=== PATIENT | female | born 1940 | race Caucasian/White ===

== ENCOUNTER 2020-08-23 09:56 | Inpatient (IN) | payer MEDICARE, MEDICAID, SELFPAY ==
--- NOTE | 2020-08-23 10:08 | XRR_ITS ---
PROCEDURE INFORMATION: Exam: XR Chest, 1 View Exam date and time: 08/23/2020 10:40 AM Age: 80 years old Clinical indication: Dyspnea; Additional info: Covid TECHNIQUE: Imaging protocol: XR of the chest Views: 1 view. COMPARISON: CT Chest/Abdomen/Pelvis w IV* 03/28/2015 7:33 PM FINDINGS: Lungs: Ilnt-to-nttnudec pulmonary opacities in the mid and right lower lung field consistent with pneumonia. Pleural space: Unremarkable. No pleural effusion. No pneumothorax. Heart/Mediastinum: Unremarkable. No cardiomegaly. Vasculature: Calcification of the thoracic aorta and/or great vessels consistent with atherosclerotic vessel disease. 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 XR/XR chest 1V portable [id number] IMPRESSION: [id number] pulmonary opacities in the mid and right lower lung field consistent with pneumonia.
--- NOTE | 2020-08-23 10:09 | ECG_ITS ---
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
--- NOTE | 2020-08-23 10:13 | W.ED.COVID ---
HPI - COVID General: Chief Complaint: COVID symptoms Stated Complaint: COVID +/ Fever Time Seen by Provider: 08/23/20 09:58 History of Present Illness: HPI Narrative: This patient is an 80-year-old female presenting today with Covid. She is concerned that she has been sick for a total of 2 weeks and is still willing pretty bad. Her symptoms have been cough, fever, body aches, back pain, shortness of breath. These symptoms all started 2 weeks ago and have been basically unchanged. She was seen in the ER at [place] 6 days ago and had a chest x-ray at that time which showed some Covid changes. She was put on Decadron for 5 days. Her positive Covid test was done on Tuesday the week before that at [facility]. Her is also positive but has not been very symptomatic. She is pretty healthy overall and only takes a fluid pill. She denies diabetes, hypertension. She does have obesity as a risk factor as well as her age. Her PCP is Kaleb Rodríguez MD complaint: known COVID positive Prior covid testing: yes, results known ([facility]) Prior testing date: 08/12/20 COVID 19 common symptoms: positive fever(s) (103), chills, cough, non-productive cough, dyspnea, fatigue, body aches, headache(s) and nausea COVID 19 other sytmptoms: positive chest pressure; negative chest pain Onset (ago): day(s) (14) Severity: moderate and slowly worsening Pertinent comorbid conditions: obesity and recent ED visit for same complaint (At [place] on 1025) COVID Results: SARS-CoV-2 Antigen (Rapid) Negative (Negative) 08/23/20 12:00 08/23/20 SARS-CoV-2 RNA (RT-PCR) Pending 08/23/20 12:00 08/23/20 Review of Systems General: Reports: 10 or more systems reviewed and unremarkable except in HPI and below Const: Reports: fever(s) (103), chills, body aches and fatigue Eyes: Denies: change in vision ENMT: Denies: odynophagia Card: Denies: chest pain or swelling of feet/ankles Resp: Reports: dyspnea and non-productive cough GI: Reports: nausea : Denies: flank pain or difficulty voiding Musc: Denies: neck pain or back pain Skin/Breast: Denies: rash Neuro: Reports: headache(s) Stepan/Lymph: Denies: easy bruising or easy bleeding PFSH ED PFSH: Medical History (Updated 08/23/20 @ 13:05 by Fermin Melissa MD) GERD (gastroesophageal reflux disease) Hypertension Transaminitis Surgical History (Updated 08/23/20 @ 13:02 by Fermin Melissa MD) History of bladder surgery History of carpal tunnel surgery History of cholecystectomy History of hysterectomy Family History (Updated 08/23/20 @ 13:02 by Fermin Melissa MD) Other CAD (coronary artery disease) Social History (Updated 08/23/20 @ 13:02 by Fermin Melissa MD) Smoking and tobacco status: never smoked Alcohol intake: never Physical Exam Const: COMMON NORMALS: no acute distress, patient oriented x3, no limitations and alert GENERAL APPEARANCE: cooperative HENMT: HEAD & SCALP: normal to inspection FACE & SINUS: normal facial exam Eye: GENERAL EYE: appearance normal, both eyes and all related structures Neck/C-Spine: COMMON NORMALS: supple, no meningeal signs and no JVD Chest: COMMONS NORMALS: normal inspection of the chest Resp: EFFORT & INSPECTION: Yes tachypneic, Yes labored and Yes uses accessory muscles AUSCULTATION: diminished lung sounds Cardio: COMMON NORMALS: no JVD, regular rate, regular rhythm and No murmurs present (Cardio) RATE: regular rate RHYTHM: regular rhythm GI: COMMON NORMALS: Normal to inspection, nondistended, normoactive bowel sounds present, Soft to palpation and non-tender INSPECTION: Yes normal to inspection AUSCULTATION: Yes normoactive bowel sounds PALPATION: Yes Soft to palpation Back/Pelvis: COMMON NORMALS: thoracic and lumbar spine normal to inspection Extremity: COMMON NORMALS: normal to inspection Neuro: COMMON NORMALS: patient oriented x3, moves all extremities, no focal motor deficits and no sensory deficits noted SENSORIUM/ORIENTATION: Yes alert MENINGEAL SIGNS: Yes no meningeal signs Psych: COMMON NORMALS: mental status grossly normal, cooperative and normal affect Skin: COMMON NORMALS: no rashes or lesions noted and turgor normal GENERAL SKIN EXAM: no rashes or lesions noted and turgor normal Course ED course: Patient remained fairly stable throughout her ED stay. Initially her room air sat was hanging around 90 but dropped into the high 80s. Her chest x-ray reflects bibasilar infiltrates consistent with pneumonia. They do not seem as classic for Covid being as they are fairly localized and I got blood cultures and put her on antibiotics as well. She is on day 14 and its not unreasonable to think that this could be a secondary bacterial infection. Her other labs were pretty good with a CRP of 92. She will be admitted for further treatment and observation due to her age and somewhat unusual course of her illness. Vital Signs: Vital signs: Vital Signs Temperature 99.6 F 08/23/20 10:17 Pulse Rate 93 08/23/20 10:17 Respiratory Rate 20 H 08/23/20 10:17 Blood Pressure 151/89 08/23/20 10:17 Pulse Oximetry 93 08/23/20 10:26 MDM - COVID Lab Data Result diagrams: 08/23/20 10:14 08/23/20 10:14 Labs: Lab Results 08/23/20 08/23/20 08/23/20 Range/Units 10:14 10:14 10:14 WBC 8.8 (4.0-10.0) 10^3/uL RBC 4.53 (4.1-5.3) 10^6/uL Hgb 13.5 (11.5-15.3) g/dL Hct 40.7 (37.0-47.0) % MCV 89.8 (81-99) fL MCH 29.8 (28.0-34.0) pg MCHC 33.2 (30.0-36.0) g/dL RDW 13.2 (12.1-15.1) % Plt Count 203 (130-400) 10^3/cmm MPV 10.6 H (7.4-10.4) fL Neut % (Auto) 85.9 % Lymph % (Auto) 9.9 % Butts % (Auto) 3.5 % Eos % (Auto) 0.0 % Baso % (Auto) 0.1 % Neut # (Auto) 7.55 (1.8-7.7) 10^3/uL Lymph # (Auto) 0.9 (0.8-4.8) 10^3/uL Butts # (Auto) 0.3 (0.2-0.9) 10^3/uL Eos # (Auto) 0.0 (0.0-0.8) 10^3/uL Baso # (Auto) 0.0 (0.0-0.1) 10^3/uL Nucleated RBC % (auto) 0 % Nucleated RBCs # 0.0 /100WBC PT 12.40 (12.1-14.9) SECONDS INR 0.90 (0.8-1.2) Fibrinogen 590 H (174-498) mg/dL D-Dimer 0.95 H (0-0.59) ug/mIFEU Specimen Type Sample Site ABG pH (7.35-7.45) ABG pCO2 (35-45) mmHg ABG pO2 (80.0-100.0) mmHg ABG HCO3 (22-26) mmol/L ABG Base Excess (-2.0-2.0) mmol/L Tyler Test Hematocrit (37-47) % O2 Delivery Device FiO2 % Bag Maker ID Sodium 137 (136-145) mmol/L Potassium 4.2 (3.5-5.1) mmol/L Chloride 100 (98-107) mmol/L Carbon Dioxide 25 (22-29) mmol/L Anion Gap 16.2 (5-19) BUN 13 (8-23) mg/dL Creatinine 0.4 L (0.5-0.9) mg/dL GFR Calculation Not Reportable Glucose 122 H (65-115) mg/dL Calculated Osmolality 285 (285-295) mOsm/kg Lactic Acid (0.5-2.2) mmol/L Calcium 9.7 (8.5-10.5) mg/dL Magnesium 1.5 L (1.7-2.3) mg/dL Total Bilirubin 0.6 (0.15-1.2) mg/dL AST 34 H (0-32) U/L ALT 37 H (0-33) U/L Alkaline Phosphatase 115 H (35-105) IU/L Lactate Dehydrogenase 247 H (135-214) U/L Troponin T Baseline (0-10) ng/L Troponin T 120 Minute (0-10) ng/L Delta Troponin T (0-10) ABS# C-Reactive Protein 92.3 H (0.0-4.9) mg/L NT-Pro-B Natriuret Pep 398 (0-450) pg/mL Total Protein 6.3 L (6.6-8.7) g/dL Albumin 3.6 (3.5-5.2) g/dL Globulin 2.7 (1.3-4.6) g/dL Procalcitonin 0.07 (0-0.5) ng/mL Influenza Type A Ag (Negative) Influenza Type B Ag (Negative) SARS-CoV-2 Ag (Rapid) (Negative) 08/23/20 08/23/20 08/23/20 Range/Units 10:14 10:14 10:14 WBC (4.0-10.0) 10^3/uL RBC (4.1-5.3) 10^6/uL Hgb (11.5-15.3) g/dL Hct (37.0-47.0) % MCV (81-99) fL MCH (28.0-34.0) pg MCHC (30.0-36.0) g/dL RDW (12.1-15.1) % Plt Count (130-400) 10^3/cmm MPV (7.4-10.4) fL Neut % (Auto) % Lymph % (Auto) % Butts % (Auto) % Eos % (Auto) % Baso % (Auto) % Neut # (Auto) (1.8-7.7) 10^3/uL Lymph # (Auto) (0.8-4.8) 10^3/uL Butts # (Auto) (0.2-0.9) 10^3/uL Eos # (Auto) (0.0-0.8) 10^3/uL Baso # (Auto) (0.0-0.1) 10^3/uL Nucleated RBC % (auto) % Nucleated RBCs # /100WBC PT (12.1-14.9) SECONDS INR (0.8-1.2) Fibrinogen (174-498) mg/dL D-Dimer (0-0.59) ug/mIFEU Specimen Type Sample Site ABG pH (7.35-7.45) ABG pCO2 (35-45) mmHg ABG pO2 (80.0-100.0) mmHg ABG HCO3 (22-26) mmol/L ABG Base Excess (-2.0-2.0) mmol/L Tyler Test Hematocrit (37-47) % O2 Delivery Device FiO2 % Bag Maker ID Sodium (136-145) mmol/L Potassium (3.5-5.1) mmol/L Chloride (98-107) mmol/L Carbon Dioxide (22-29) mmol/L Anion Gap (5-19) BUN (8-23) mg/dL Creatinine (0.5-0.9) mg/dL GFR Calculation Glucose (65-115) mg/dL Calculated Osmolality (285-295) mOsm/kg Lactic Acid 1.4 (0.5-2.2) mmol/L Calcium (8.5-10.5) mg/dL Magnesium (1.7-2.3) mg/dL Total Bilirubin (0.15-1.2) mg/dL AST (0-32) U/L ALT (0-33) U/L Alkaline Phosphatase (35-105) IU/L Lactate Dehydrogenase (135-214) U/L Troponin T Baseline 7 (0-10) ng/L Troponin T 120 Minute (0-10) ng/L Delta Troponin T (0-10) ABS# C-Reactive Protein (0.0-4.9) mg/L NT-Pro-B Natriuret Pep (0-450) pg/mL Total Protein (6.6-8.7) g/dL Albumin (3.5-5.2) g/dL Globulin (1.3-4.6) g/dL Procalcitonin (0-0.5) ng/mL Influenza Type A Ag Negative (Negative) Influenza Type B Ag Negative (Negative) SARS-CoV-2 Ag (Rapid) (Negative) 08/23/20 08/23/20 08/23/20 Range/Units 10:22 12:00 12:14 WBC (4.0-10.0) 10^3/uL RBC (4.1-5.3) 10^6/uL Hgb (11.5-15.3) g/dL Hct (37.0-47.0) % MCV (81-99) fL MCH (28.0-34.0) pg MCHC (30.0-36.0) g/dL RDW (12.1-15.1) % Plt Count (130-400) 10^3/cmm MPV (7.4-10.4) fL Neut % (Auto) % Lymph % (Auto) % Butts % (Auto) % Eos % (Auto) % Baso % (Auto) % Neut # (Auto) (1.8-7.7) 10^3/uL Lymph # (Auto) (0.8-4.8) 10^3/uL Butts # (Auto) (0.2-0.9) 10^3/uL Eos # (Auto) (0.0-0.8) 10^3/uL Baso # (Auto) (0.0-0.1) 10^3/uL Nucleated RBC % (auto) % Nucleated RBCs # /100WBC PT (12.1-14.9) SECONDS INR (0.8-1.2) Fibrinogen (174-498) mg/dL D-Dimer (0-0.59) ug/mIFEU Specimen Type Arterial Sample Site Radial, left ABG pH 7.52 H (7.35-7.45) ABG pCO2 31.3 L (35-45) mmHg ABG pO2 66.5 L (80.0-100.0) mmHg ABG HCO3 25.5 (22-26) mmol/L ABG Base Excess 3.2 H (-2.0-2.0) mmol/L Tyler Test Pos Hematocrit 42.8 (37-47) % O2 Delivery Device Room air FiO2 21.0 % Bag Maker ID Cak Sodium (136-145) mmol/L Potassium (3.5-5.1) mmol/L Chloride (98-107) mmol/L Carbon Dioxide (22-29) mmol/L Anion Gap (5-19) BUN (8-23) mg/dL Creatinine (0.5-0.9) mg/dL GFR Calculation Glucose (65-115) mg/dL Calculated Osmolality (285-295) mOsm/kg Lactic Acid (0.5-2.2) mmol/L Calcium (8.5-10.5) mg/dL Magnesium (1.7-2.3) mg/dL Total Bilirubin (0.15-1.2) mg/dL AST (0-32) U/L ALT (0-33) U/L Alkaline Phosphatase (35-105) IU/L Lactate Dehydrogenase (135-214) U/L Troponin T Baseline (0-10) ng/L Troponin T 120 Minute 7.61 (0-10) ng/L Delta Troponin T 0.61 (0-10) ABS# C-Reactive Protein (0.0-4.9) mg/L NT-Pro-B Natriuret Pep (0-450) pg/mL Total Protein (6.6-8.7) g/dL Albumin (3.5-5.2) g/dL Globulin (1.3-4.6) g/dL Procalcitonin (0-0.5) ng/mL Influenza Type A Ag (Negative) Influenza Type B Ag (Negative) SARS-CoV-2 Ag (Rapid) Negative (Negative) COVID Results: SARS-CoV-2 Antigen (Rapid) Negative (Negative) 08/23/20 12:00 08/23/20 SARS-CoV-2 RNA (RT-PCR) Pending 08/23/20 12:00 08/23/20 Discharge Plan Discharge Patient Disposition: Admitted As Inpatient Clinical Impression: COVID-19, Hypoxia Pneumonia Qualifiers: Pneumonia type: due to unspecified organism Laterality: bilateral Lung location: lower lobe of lung Qualified Code(s): J18.9 - Pneumonia, unspecified organism Condition: Stable Referrals: Grey Baltazar [Primary Care Provider] - Coding Level of Care Code ED H[employer] for [facility] Fwd Exam Comprehensive
[2020-08-23 10:17] VITALS: BP 151/89; PULSE 93; RESP 20; TEMP 37.6; O2SAT 93; BMI 34.9
[2020-08-23 10:20] LABS: Basophils % 0.1 %; Hematocrit 40.7 % (37.0-47.0); Hemoglobin 13.5 g/dL (11.5-15.3); Lymphocytes # 0.9 10^3/uL (0.8-4.8); Lymphocytes % 9.9 %; Mean Corpuscular HGB Conc 33.2 g/dL (30.0-36.0); Mean Corpuscular Hemoglobin 29.8 pg (28.0-34.0); Mean Corpuscular Volume 89.8 fL (81-99); Mean Platelet Volume 10.6 fL (7.4-10.4); Monocytes # 0.3 10^3/uL (0.2-0.9); Monocytes % 3.5 %; Neutrophils # 7.55 10^3/uL (1.8-7.7); Neutrophils % 85.9 %; Nucleated Red Blood Cells % 0 %; Platelet Count 203 10^3/cmm (130-400); Red Blood Count 4.53 10^6/uL (4.1-5.3); Red Cell Distribution Width 13.2 % (12.1-15.1); White Blood Count 8.8 10^3/uL (4.0-10.0)
[2020-08-23 10:26] VITALS: O2SAT 93
[2020-08-23 10:33] LABS: ABG PCO2 31.3 mmHg (35-45); ABG PH Result 7.52 (7.35-7.45); Arterial Blood Gas Hematocrit 42.8 % (37-47); Base Excess ABG 3.2 mmol/L (-2.0-2.0); Blood Gas Allen Test Pos; Blood Gas Operator Identificat CAK; Blood Gas Sample Site Radial, left; Blood Gas Sample Type Arterial; HCO3 ABG 25.5 mmol/L (22-26); Oxygen Device ROOM AIR; PO2 ABG 66.5 mmHg (80.0-100.0)
[2020-08-23 10:38] LABS: Influenza A by IFA Negative (Negative); Influenza B by IFA Negative (Negative)
[2020-08-23 10:42] LABS: Fibrinogen 590 mg/dL (174-498)
[2020-08-23 10:45] LABS: D Dimer 0.95 ug/mIFEU (0-0.59)
[2020-08-23 10:52] LABS: Lactic Sepsis W/Reflex 1.4 mmol/L (0.5-2.2)
[2020-08-23 10:54] LABS: Troponin(5th) Baseline 7 ng/L (0-10)
[2020-08-23 11:02] LABS: NT Pro B Type Natriuretic Pept 398 pg/mL (0-450); Procalcitonin 0.07 ng/mL (0-0.5)
[2020-08-23 11:13] LABS: Alanine Aminotransferase 37 U/L (0-33); Albumin Level 3.6 g/dL (3.5-5.2); Alkaline Phosphatase 115 IU/L (35-105); Anion Gap 16.2 (5-19); Aspartate Amino Transferase 34 U/L (0-32); Blood Urea Nitrogen 13 mg/dL (8-23); C Reactive Protein 92.3 mg/L (0.0-4.9); Calcium 9.7 mg/dL (8.5-10.5); Carbon Dioxide 25 mmol/L (22-29); Chloride 100 mmol/L (98-107); Globulin 2.7 g/dL (1.3-4.6); Glucose 122 mg/dL (65-115); Magnesium 1.5 mg/dL (1.7-2.3); Osmolality Calculated 285 mOsm/kg (285-295); Potassium 4.2 mmol/L (3.5-5.1); Sodium 137 mmol/L (136-145); Total Bilirubin 0.6 mg/dL (0.15-1.2); Total Protein 6.3 g/dL (6.6-8.7)
[2020-08-23 11:38] LABS: Lactate Dehydrogenase 247 U/L (135-214)
--- NOTE | 2020-08-23 12:09 | ECG_ITS ---
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
[2020-08-23] MEDS: dexamethasone 4 mg/mL INJ 6 MG IVP (12:15)
--- NOTE | 2020-08-23 12:27 | CTR_ITS ---
PROCEDURE INFORMATION: Exam: CT Angiography Chest With Contrast Exam date and time: 08/23/2020 12:45 PM Age: 80 years old Clinical indication: Patient HX: Covid+, hypoxia, pneumonia TECHNIQUE: Imaging protocol: Computed tomographic angiography of the chest with intravenous contrast. 3D rendering (Not supervised by radiologist): MIP and/or 3D reconstructed images were created by the technologist. Radiation optimization: All CT scans at this facility use at least one of these dose optimization techniques: automated exposure control; mA and/or kV adjustment per patient size (includes targeted exams where dose is matched to clinical indication); or iterative reconstruction. Contrast material: OMNI 350; Contrast volume: 75 ml; Contrast route: INTRAVENOUS (IV); COMPARISON: CT Chest/Abdomen/Pelvis w IV* 03/28/2015 7:33 PM RADIATION DOSE METRICS: Total DLP (mGy-cm): 532.2 FINDINGS: Pulmonary arteries: Normal. No pulmonary emboli. Aorta: Unremarkable. No aortic aneurysm. No aortic dissection. Lungs: Right-sided ground-glass opacities with some crazy paving consistent with gfwt-dq-wpgwsnfy right-sided pneumonia with mild to moderate lingular pneumonia, consistent with Covid-19 pneumonia. Pleural space: Unremarkable. No pneumothorax. No pleural effusion. Heart: Unremarkable. No cardiomegaly. No pericardial effusion. Lymph nodes: Calcified bilateral hilar nodes and/or mediastinal nodes and/or lung granulomas consistent with old granulomatous disease. Mild noncalcified right inferior hilar adenopathy which is probably reactive. Liver: Stable calcified hepatic granulomas. Gallbladder and bile ducts: Stable cholecystectomy. Spleen: Stable calcified splenic granulomas. Bones/joints: Unremarkable. No acute fracture. Soft tissues: Unremarkable. Other findings: Examination is limited secondary to motion artifact. CT/CT angio chest PE protcl [id number] IMPRESSION: 1. Right-sided ground-glass opacities with some crazy paving consistent with [id number]-nzyxxnsh right-sided pneumonia with mild to moderate lingular pneumonia, consistent with Covid-19 pneumonia. 2. Mild noncalcified right inferior hilar adenopathy which is probably reactive. 3. No pulmonary embolus or aortic dissection. Radiation Dose CTDIVOL = (mGy): DLP = 532.2 (mGy-cm)
[2020-08-23 12:55] LABS: Troponin 5 2HR 7.61 ng/L (0-10); Troponin 5 2HR Delta 0.61 ABS# (0-10)
[2020-08-23] MEDS: cefTRIAXone 1,000 MG in sodium chloride 0.9% (plus) 50 ML 100 MG IV (12:58)
[2020-08-23] MEDS: magnesium sulfate premix 2 GM/50 ML PIGGYBACK IV (13:00)
[2020-08-23] MEDS: azithromycin 500 MG in sodium chloride 0.9% 250 ML 250 MG IV (13:00)
--- NOTE | 2020-08-23 13:00 | PM.HP ---
Providers/Chief Complaint Primary Care Provider: Grey Baltazar Chief Complaint: COVID +/ Fever History of Present Illness Belia Patterson is a 80 year old female who reports she had a positive Covid test 11 days ago after 1 day of symptoms mainly consisting of nausea and diarrhea. She is also had some nasal congestion. In the last several days she has been coughing, short of breath. She continues to run intermittently fevers. She was seen in the emergency department at [place] and given dexamethasone for which she is taken approximately 5 days. She denies any current vomiting. She is able to eat and drink okay. She reports she has a little bit of chest discomfort when she takes a deep breath. She is worried she may have pneumonia. Review of Systems General: Reports: 10 or more systems reviewed and unremarkable except in HPI and below Const: Reports: fever(s), body aches and change in appetite Eyes: Denies: change in vision ENMT: Denies: throat pain Card: Reports: chest pain Resp: Reports: dyspnea and non-productive cough GI: Denies: abdominal pain : Denies: flank pain Musc: Denies: neck pain Skin/Breast: Denies: rash Neuro: Denies: headache(s) Psych: Denies: anxiety Endo: Denies: polyuria Stepan/Lymph: Denies: easy bruising All/Imm: Denies: urticaria Medications/Allergies Home Medications Medication Instructions Recorded Confirmed Last Taken Type Vitamin D3 See Rx Instructions .ROUTE .COMPLEX 08/23/20 08/23/20 Unknown History acetaminophen [Tylenol Extra 500 mg PO PRN 08/23/20 08/23/20 08/23/20 08:00 History Strength] hydrochlorothiazide 25 mg PO DAILY 08/23/20 08/23/20 08/23/20 History omeprazole 20 mg PO DAILY 08/23/20 08/23/20 08/23/20 History potassium chloride 20 meq PO DAILY 08/23/20 08/23/20 08/23/20 History 10 MEQ prednisone 20 mg PO DAILY 08/23/20 08/23/20 08/23/20 History Allergies Allergy/AdvReac Type Severity Reaction Status Date / Time azithromycin [From Zithromax] Allergy Unknown Verified 08/23/20 12:32 diclofenac [From Voltaren] Allergy Unknown Verified 08/23/20 12:32 PFSH Acute PFSH: Medical History (Updated 08/23/20 @ 13:05 by Fermin Melissa MD) GERD (gastroesophageal reflux disease) Hypertension Transaminitis Surgical History (Updated 08/23/20 @ 13:02 by Fermin Melissa MD) History of bladder surgery History of carpal tunnel surgery History of cholecystectomy History of hysterectomy Family History (Updated 08/23/20 @ 13:02 by Fermin Melissa MD) Other CAD (coronary artery disease) Social History (Updated 08/23/20 @ 13:02 by Fermin Melissa MD) Smoking and tobacco status: never smoked Alcohol intake: never Vitals/I&O/Wt Last Vital Signs Temp 99.6 F 08/23/20 10:17 Pulse 93 08/23/20 10:17 Resp 20 H 08/23/20 10:17 BP 151/89 08/23/20 10:17 Pulse Ox 93 08/23/20 10:26 Weight last 48 hrs Weight 95.254 kg Physical Exam Narrative: EXAM NARRATIVE: General exam is an elderly female, conversant. Mild tachypnea. Occasional cough. HEENT: Pupils equally round. Oropharynx clear. Neck is supple no lymphadenopathy or thyromegaly Cardiovascular regular rate and rhythm without murmur, no S3 or S4 Lungs a few sparse crackles, no wheezing Abdomen is soft nontender with positive bowel sounds was deferred Extremities no cyanosis clubbing or edema, cap refill is brisk Skin no rash Neuro no obvious focal deficits. Data : 08/23/20 10:14 08/23/20 10:14 A&P Assessment and plan (1) Pneumonia due to COVID-19 virus: Remdesivir Dexamethasone Oxygen as needed Albuterol as needed Doxycycline in case superimposed bacterial bronchitis Status: Acute (2) Pleuritic pain: Check CTA. She has some component of pleuritic pain. Doubt pulmonary embolism. Status: Acute (3) Acute respiratory failure: Oxygen as needed Status: Acute Additional A&P Information Hypomagnesemia. Supplement history of hypertension. Continue HCTZ. Reduce dose to 12.5 mg currently. History of GERD. Protonix Full code Lovenox for DVT prophylaxis. Attestations Medical Necessity Statement*: Will need greater than 2 midnight stay, for evaluation and treatment of COVID-19 pneumonia. Time Spent in Patient Care: Greater than 35 minutes Coding Level of Care Code Acute [employer] for [employer] Fwd Diagnoses Pneumonia due to COVID-19 virus U07.1; J12.89 Pleuritic pain R07.81 Acute respiratory failure J96.00
[2020-08-23] MEDS: iohexol 350 mg/mL 100 mL Btl IV (13:03)
[2020-08-23 13:15] LABS: SARS Covid-2 Antigen Negative (Negative)
--- NOTE | 2020-08-23 16:09 | ECG_ITS ---
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
[2020-08-23 16:36] VITALS: BP 128/67; PULSE 75; RESP 15; O2SAT 95
[2020-08-23 16:42] LABS: Troponin 5 6HR 6.49 ng/L (0-10)
[2020-08-23 16:43] LABS: Troponin 5 6HR Delta -0.51 ng/L (0-12)
[2020-08-23 17:47] VITALS: BP 156/79; PULSE 61; RESP 20; TEMP 37; O2SAT 91
[2020-08-23] MEDS: enoxaparin 40 mg/0.4 mL Syringe SUBCUT (17:57)
[2020-08-23 19:35] VITALS: BP 123/70; PULSE 81; RESP 20; TEMP 36.7; O2SAT 95
[2020-08-24] VITALS (9 sets, daily range): BP systolic 100–135; BP diastolic 52–78; PULSE 50–76; RESP 17–20; TEMP 36.4–36.9; O2SAT 93–96
[2020-08-24 06:52] LABS: Alanine Aminotransferase 30 U/L (0-33); Albumin Level 3.1 g/dL (3.5-5.2); Alkaline Phosphatase 98 IU/L (35-105); Blood Urea Nitrogen 17 mg/dL (8-23); Calcium 9.7 mg/dL (8.5-10.5); Carbon Dioxide 30 mmol/L (22-29); Chloride 105 mmol/L (98-107); Globulin 2.9 g/dL (1.3-4.6); Glucose 126 mg/dL (65-115); Magnesium 2.1 mg/dL (1.7-2.3); Osmolality Calculated 297 mOsm/kg (285-295); Sodium 142 mmol/L (136-145); Total Bilirubin 0.3 mg/dL (0.15-1.2)
[2020-08-24 06:53] LABS: Anion Gap 11.1 (5-19); Aspartate Amino Transferase 28 U/L (0-32); Potassium 4.1 mmol/L (3.5-5.1)
--- NOTE | 2020-08-24 07:07 | NUR.SHIFT ---
Patient had mainly slept throughout the night. When asked how she felt when compared to yesterday, she stated that she felt better.
[2020-08-24 07:44] LABS: Basophils % 0.2 %; Hemoglobin 11.8 g/dL (11.5-15.3); Lymphocytes # 0.8 10^3/uL (0.8-4.8); Lymphocytes % 15.9 %; Mean Corpuscular HGB Conc 31.9 g/dL (30.0-36.0); Mean Corpuscular Hemoglobin 29.9 pg (28.0-34.0); Mean Corpuscular Volume 93.7 fL (81-99); Monocytes # 0.3 10^3/uL (0.2-0.9); Monocytes % 4.8 %; Neutrophils # 4.08 10^3/uL (1.8-7.7); Nucleated Red Blood Cells % 0 %; Platelet Count 192 10^3/cmm (130-400); Red Blood Count 3.95 10^6/uL (4.1-5.3); Red Cell Distribution Width 13.4 % (12.1-15.1); White Blood Count 5.2 10^3/uL (4.0-10.0)
--- NOTE | 2020-08-24 08:13 | PM.PN ---
Subjective Subjective: Interval history: Belia reports she is doing okay. Feels better than yesterday. Less short of breath. Medications: Reviewed: Yes Vitals/I&O/Wt Last Vital Signs Temp 98.1 F 08/24/20 04:00 Pulse 51 L 08/24/20 04:00 Resp 20 H 08/24/20 04:00 BP 108/69 08/24/20 04:00 Pulse Ox 95 08/24/20 04:00 08/23/20 08/24/20 08/24/20 23:59 06:59 14:59 Intake Total Output Total Balance Weight last 48 hrs Weight 95.254 kg Physical Exam Narrative: EXAM NARRATIVE: General exam no apparent distress Cardiovascular regular rate and rhythm without murmur, no S3 or S4 Lungs a few sparse crackles, no wheezing Abdomen is soft nontender with positive bowel sounds Extremities no cyanosis clubbing or edema, cap refill is brisk Data : 08/24/20 05:45 08/24/20 05:45 Micro: Microbiology 08/23/20 16:35 Blood Culture - Preliminary Blood SPECIMEN COLLECTED 08/23/20 10:14 Blood Culture - Preliminary Blood SPECIMEN COLLECTED A&P Assessment and plan (1) Pneumonia due to COVID-19 virus: Continue remdesivir and dexamethasone Wean oxygen as tolerated Albuterol as needed Doxycycline in case superimposed bacterial bronchitis Add incentive spirometry Status: Acute (2) Pleuritic pain: CTA did not demonstrate pulmonary embolism. Infiltrates consistent with Covid pneumonia were noted. Status: Acute (3) Acute respiratory failure: Oxygen as needed Status: Acute Additional A&P Information Hypomagnesemia. Supplemented. Normal this morning. history of hypertension. Hold hydrochlorothiazide currently. History of GERD. Protonix Full code Lovenox for DVT prophylaxis. Attestations Medical Necessity Statement*: Needs continued hospitalization for antiviral, close monitoring with moderate to severe Covid Coding Level of Care Code Acute [employer]person [employer] for [facility] Fwd Diagnoses Pneumonia due to COVID-19 virus U07.1; J12.89 Pleuritic pain R07.81 Acute respiratory failure J96.00
[2020-08-24] MEDS: doxycycline 100 mg Tablet PO ×2 (08:23→17:21)
[2020-08-24] MEDS: pantoprazole DR 40 mg Tablet PO (08:23)
[2020-08-24] MEDS: dexamethasone 4 mg/mL INJ 6 MG IVP (08:23)
[2020-08-24 16:42] LABS: Quest SARS-CoV-2 RNA DETECTED (NOT DETECTED)
[2020-08-24] MEDS: enoxaparin 40 mg/0.4 mL Syringe SUBCUT (17:21)
[2020-08-25] VITALS (9 sets, daily range): BP systolic 130–169; BP diastolic 77–85; PULSE 50–67; RESP 16–21; TEMP 36.5–36.7; O2SAT 93–97
[2020-08-25 07:19] LABS: Basophils % 0.2 %; Hematocrit 38.5 % (37.0-47.0); Hemoglobin 12.4 g/dL (11.5-15.3); Lymphocytes # 1.2 10^3/uL (0.8-4.8); Lymphocytes % 21.4 %; Mean Corpuscular HGB Conc 32.2 g/dL (30.0-36.0); Mean Corpuscular Hemoglobin 29.6 pg (28.0-34.0); Mean Corpuscular Volume 91.9 fL (81-99); Monocytes # 0.3 10^3/uL (0.2-0.9); Monocytes % 5.5 %; Neutrophils # 4.04 10^3/uL (1.8-7.7); Neutrophils % 72.2 %; Nucleated Red Blood Cells % 0 %; Platelet Count 235 10^3/cmm (130-400); Red Blood Count 4.19 10^6/uL (4.1-5.3); Red Cell Distribution Width 13.4 % (12.1-15.1); White Blood Count 5.6 10^3/uL (4.0-10.0)
[2020-08-25 07:21] LABS: D Dimer 0.51 ug/mIFEU (0-0.59)
[2020-08-25 07:34] LABS: Alanine Aminotransferase 29 U/L (0-33); Alkaline Phosphatase 98 IU/L (35-105); Anion Gap 11.1 (5-19); Aspartate Amino Transferase 25 U/L (0-32); Blood Urea Nitrogen 25 mg/dL (8-23); Carbon Dioxide 28 mmol/L (22-29); Chloride 106 mmol/L (98-107); Globulin 3.1 g/dL (1.3-4.6); Glucose 113 mg/dL (65-115); Osmolality Calculated 297 mOsm/kg (285-295); Potassium 4.1 mmol/L (3.5-5.1); Sodium 141 mmol/L (136-145); Total Bilirubin 0.4 mg/dL (0.15-1.2); Total Protein 6.1 g/dL (6.6-8.7)
[2020-08-25 07:37] LABS: Slide Review Slide Review Perform
[2020-08-25 07:38] LABS: Ferritin 721 ng/mL (15-150)
[2020-08-25 07:51] LABS: C Reactive Protein 39.4 mg/L (0.0-4.9)
[2020-08-25] MEDS: doxycycline 100 mg Tablet PO ×2 (09:05→18:23)
[2020-08-25] MEDS: pantoprazole DR 40 mg Tablet PO (09:05)
[2020-08-25] MEDS: dexamethasone 4 mg/mL INJ 6 MG IVP (09:05)
--- NOTE | 2020-08-25 11:02 | PM.PN ---
Subjective Subjective: Interval history: No acute event overnight.She is still on 2l oxygen via [place]. Has mild cough. Vitals and labs have been reviewed. Medications: Reviewed: Yes Vitals/I&O/Wt Last Vital Signs Temp 97.9 F 08/25/20 07:42 Pulse 67 08/25/20 10:51 Resp 18 08/25/20 10:51 BP 130/80 08/25/20 07:42 Pulse Ox 97 08/25/20 10:51 08/24/20 08/25/20 08/25/20 22:59 06:59 14:59 Intake Total 840 / 1420 220 / 1640 100 / 100 Output Total 200 / 400 350 / 750 Balance 640 / 1020 -130 / 890 100 / 100 Physical Exam Const: COMMON NORMALS: patient oriented x3 HENMT: COMMON NORMALS: normocephalic, atraumatic, hearing grossly normal bilaterally and external ears normal HEAD & SCALP: normocephalic and atraumatic EXTERNAL EAR: Yes external ears normal Eye: COMMON NORMALS: no scleral icterus GENERAL EYE: appearance normal, both eyes and all related structures Chest: COMMONS NORMALS: normal inspection of the chest and normal palpation of entire chest wall CHEST: Yes Symmetrical chest wall rise Resp: COMMON NORMALS: normal respiratory effort, No retractions, No use of accessory muscles and clear to auscultation bilaterally EFFORT & INSPECTION: Yes symmetric chest movement AUSCULTATION: clear to auscultation bilaterally Cardio: COMMON NORMALS: regular rate, regular rhythm, S1 normal heart sound present, S2 normal heart sound present, No gallops present (Cardio), No murmurs present (Cardio), No rub (Cardio) and Peripheral pulses 2+ throughout RATE: regular rate RHYTHM: regular rhythm HEART SOUNDS: S1 normal heart sound present and S2 normal heart sound present PERIPHERAL PULSES: Peripheral pulses 2+ throughout GI: COMMON NORMALS: Normal to inspection, nondistended, normoactive bowel sounds present, Soft to palpation, non-tender, No hepatosplenomegaly present and no masses AUSCULTATION: Yes normoactive bowel sounds PALPATION: Yes Soft to palpation and Yes No hepatosplenomegaly present RECTAL EXAM: deferred Extremity: COMMON NORMALS: no clubbing, cyanosis or edema and no pedal edema Neuro: COMMON NORMALS: patient oriented x3 Data : 08/25/20 06:45 08/25/20 06:45 Micro: Microbiology 08/23/20 16:35 Blood Culture - Preliminary Blood NEGATIVE TO DATE 08/23/20 10:14 Blood Culture - Preliminary Blood NEGATIVE TO DATE A&P Assessment and plan (1) Pneumonia due to COVID-19 virus: Continue remdesivir and dexamethasone Wean oxygen as tolerated Albuterol as needed Doxycycline in case superimposed bacterial bronchitis Add incentive spirometry Status: Acute (2) Pleuritic pain: CTA did not demonstrate pulmonary embolism. Infiltrates consistent with Covid pneumonia were noted. Status: Acute (3) Acute respiratory failure: Oxygen as needed Status: Acute Additional A&P Information history of hypertension. Hold hydrochlorothiazide currently. History of GERD. Protonix Full code Lovenox for DVT prophylaxis. Attestations Medical Necessity Statement*: Patient needs to be in hospital for management of COVID PNA Coding Level of Care Code Acute Airdrop Systems Technician for [facility] Fwd Diagnoses Pneumonia due to COVID-19 virus U07.1; J12.89 Pleuritic pain R07.81 Acute respiratory failure J96.00
[2020-08-25] MEDS: enoxaparin 40 mg/0.4 mL Syringe SUBCUT (18:22)
[2020-08-25] MEDS: benzonatate 100 mg Capsule PO (21:56)
[2020-08-26] VITALS (8 sets, daily range): BP systolic 133–166; BP diastolic 77–94; PULSE 49–68; RESP 18–20; TEMP 36.6–37.2; O2SAT 91–96
[2020-08-26] MEDS: pantoprazole DR 40 mg Tablet PO (08:58)
[2020-08-26] MEDS: doxycycline 100 mg Tablet PO ×2 (08:58→17:48)
[2020-08-26] MEDS: dexamethasone 4 mg/mL INJ 6 MG IVP (08:58)
--- NOTE | 2020-08-26 13:29 | PC.SOCIAL ---
Patient received her Important message from [employer] via nurse. Patient received a copy and a copy was placed in the chart.
[2020-08-26] MEDS: enoxaparin 40 mg/0.4 mL Syringe SUBCUT (17:48)
[2020-08-26 18:53] LABS: Hematocrit 39.6 % (37.0-47.0); Hemoglobin 12.7 g/dL (11.5-15.3); Lymphocytes # 0.7 10^3/uL (0.8-4.8); Lymphocytes % 13.1 %; Mean Corpuscular HGB Conc 32.1 g/dL (30.0-36.0); Mean Corpuscular Hemoglobin 29.2 pg (28.0-34.0); Mean Platelet Volume 10.4 fL (7.4-10.4); Monocytes # 0.2 10^3/uL (0.2-0.9); Neutrophils # 4.35 10^3/uL (1.8-7.7); Neutrophils % 81.6 %; Nucleated Red Blood Cells % 0 %; Platelet Count 273 10^3/cmm (130-400); Red Blood Count 4.35 10^6/uL (4.1-5.3); Red Cell Distribution Width 13.2 % (12.1-15.1); White Blood Count 5.3 10^3/uL (4.0-10.0)
[2020-08-26 19:12] LABS: Alanine Aminotransferase 43 U/L (0-33); Albumin Level 3.1 g/dL (3.5-5.2); Alkaline Phosphatase 108 IU/L (35-105); Anion Gap 12.3 (5-19); Aspartate Amino Transferase 31 U/L (0-32); Blood Urea Nitrogen 23 mg/dL (8-23); Carbon Dioxide 25 mmol/L (22-29); Chloride 105 mmol/L (98-107); Globulin 3.1 g/dL (1.3-4.6); Glucose 187 mg/dL (65-115); Osmolality Calculated 295 mOsm/kg (285-295); Potassium 4.3 mmol/L (3.5-5.1); Sodium 138 mmol/L (136-145); Total Bilirubin 0.3 mg/dL (0.15-1.2); Total Protein 6.2 g/dL (6.6-8.7)
--- NOTE | 2020-08-26 19:59 | P.PN_ITS ---
Subjective Subjective: Interval history: No acute event overnight.Patient is off oxygen.She is saturating well on R.A Has remained afebrile.other vitals are stable. Medications: Reviewed: Yes Vitals/I&O/Wt Last Vital Signs Temp 97.9 F 08/26/20 16:00 Pulse 56 L 08/26/20 16:00 Resp 20 H 08/26/20 16:00 BP 166/94 08/26/20 16:00 Pulse Ox 92 08/26/20 16:00 08/26/20 08/26/20 08/26/20 06:59 14:59 22:59 Intake Total 760 / 760 720 / 1480 Output Total 300 / 300 Balance 460 / 460 720 / 1180 Physical Exam Const: COMMON NORMALS: patient oriented x3 HENMT: COMMON NORMALS: normocephalic, atraumatic, hearing grossly normal bilaterally and external ears normal HEAD & SCALP: normocephalic and atraumatic EXTERNAL EAR: Yes external ears normal Eye: COMMON NORMALS: no scleral icterus GENERAL EYE: appearance normal, both eyes and all related structures Chest: COMMONS NORMALS: normal inspection of the chest and normal palpation of entire chest wall CHEST: Yes Symmetrical chest wall rise Resp: COMMON NORMALS: normal respiratory effort, No retractions, No use of accessory muscles and clear to auscultation bilaterally EFFORT & INSPECTION: Yes symmetric chest movement AUSCULTATION: clear to auscultation bilaterally Cardio: COMMON NORMALS: regular rate, regular rhythm, S1 normal heart sound present, S2 normal heart sound present, No gallops present (Cardio), No murmurs present (Cardio), No rub (Cardio) and Peripheral pulses 2+ throughout RATE: regular rate RHYTHM: regular rhythm HEART SOUNDS: S1 normal heart sound present and S2 normal heart sound present PERIPHERAL PULSES: Peripheral pulses 2+ throughout GI: COMMON NORMALS: Normal to inspection, nondistended, normoactive bowel sounds present, Soft to palpation, non-tender, No hepatosplenomegaly present and no masses AUSCULTATION: Yes normoactive bowel sounds PALPATION: Yes Soft to palpation and Yes No hepatosplenomegaly present RECTAL EXAM: deferred Extremity: COMMON NORMALS: no clubbing, cyanosis or edema and no pedal edema Neuro: COMMON NORMALS: patient oriented x3 Data : 08/26/20 17:54 08/26/20 17:54 A&P Assessment and plan (1) Pneumonia due to COVID-19 virus: Continue remdesivir and dexamethasone Patient is off oxygen.She is saturating well on R.A Will monitor for COVID 19 Associated relative bradycardia Albuterol as needed Doxycycline in case superimposed bacterial bronchitis Add incentive spirometry Status: Acute (2) Pleuritic pain: CTA did not demonstrate pulmonary embolism. Infiltrates consistent with Covid pneumonia were noted. Status: Acute (3) Acute respiratory failure: Oxygen as needed Status: Acute Additional A&P Information history of hypertension. Hold hydrochlorothiazide currently. History of GERD. Protonix Full code Lovenox for DVT prophylaxis. Attestations Medical Necessity Statement*: Patient needs to be in hospital for management of COVID PNA Coding Level of Care Code Acute Instructional Support Technician for [facility] Fwd Exam Comprehensive Diagnoses Pneumonia due to COVID-19 virus U07.1; J12.89 Pleuritic pain R07.81 Acute respiratory failure J96.00
[2020-08-27] VITALS (7 sets, daily range): BP systolic 120–182; BP diastolic 75–87; PULSE 53–84; RESP 16–18; TEMP 36.6–36.9; O2SAT 88–93
[2020-08-27 05:07] LABS: Basophils % 0.2 %; Eosinophils % 0.2 %; Hematocrit 45.3 % (37.0-47.0); Hemoglobin 14.2 g/dL (11.5-15.3); Lymphocytes # 1.7 10^3/uL (0.8-4.8); Lymphocytes % 29.6 %; Mean Corpuscular HGB Conc 31.3 g/dL (30.0-36.0); Mean Corpuscular Hemoglobin 29.5 pg (28.0-34.0); Mean Corpuscular Volume 94.2 fL (81-99); Mean Platelet Volume 10.8 fL (7.4-10.4); Monocytes # 0.3 10^3/uL (0.2-0.9); Monocytes % 5.8 %; Neutrophils # 3.64 10^3/uL (1.8-7.7); Neutrophils % 62.3 %; Nucleated Red Blood Cells % 0 %; Platelet Count 295 10^3/cmm (130-400); Red Blood Count 4.81 10^6/uL (4.1-5.3); Red Cell Distribution Width 13.2 % (12.1-15.1); White Blood Count 5.8 10^3/uL (4.0-10.0)
[2020-08-27 05:26] LABS: Anion Gap 12.4 (5-19); Blood Urea Nitrogen 23 mg/dL (8-23); Calcium 10.6 mg/dL (8.5-10.5); Carbon Dioxide 29 mmol/L (22-29); Chloride 102 mmol/L (98-107); Glucose 96 mg/dL (65-115); Osmolality Calculated 292 mOsm/kg (285-295); Potassium 4.4 mmol/L (3.5-5.1); Sodium 139 mmol/L (136-145)
--- NOTE | 2020-08-27 10:33 | PM.DCS ---
Discharge Providers Date of Admission: 08/23/20 16:27 Date of Discharge: August 27, 2020 Attending Provider at Admission: Fermin Melissa MD Attending Provider at Discharge: Cullen Katz MD Primary Care Provider: Grey Baltazar Diagnoses at Discharge Discharge Diagnosis (1) Pneumonia due to COVID-19 virus: Status: Resolved (2) Pleuritic pain: Status: Resolved (3) Acute respiratory failure: Status: Resolved Reason for Visit Reason for Visit: COVID +/ Fever Hospital Course Hospital Course: 80 year old female with PMH of HTN and GERD Came in with respiratory distress after being diagnosed with COVID -19 11 days prior to admission.She completed 3 days of Remdesivir as well as she was on dexamathsone along with doxycycline for possible atypical PNA.Initially she required suplemental oxygen but at the time of discharge she was saturating well on R.A but she needed 2l oxygen with ambulation. CTA chest during this admission was negative for P.E. She is being discharged in stable condition to follow pulmonary medicine as outpatient. Physical Exam Const: COMMON NORMALS: patient oriented x3 HENMT: COMMON NORMALS: normocephalic, atraumatic, hearing grossly normal bilaterally and external ears normal HEAD & SCALP: normocephalic and atraumatic EXTERNAL EAR: Yes external ears normal Eye: COMMON NORMALS: no scleral icterus GENERAL EYE: appearance normal, both eyes and all related structures Chest: COMMONS NORMALS: normal inspection of the chest and normal palpation of entire chest wall CHEST: Yes Symmetrical chest wall rise Resp: COMMON NORMALS: normal respiratory effort, No retractions, No use of accessory muscles and clear to auscultation bilaterally EFFORT & INSPECTION: Yes symmetric chest movement AUSCULTATION: clear to auscultation bilaterally Cardio: COMMON NORMALS: regular rate, regular rhythm, S1 normal heart sound present, S2 normal heart sound present, No gallops present (Cardio), No murmurs present (Cardio), No rub (Cardio) and Peripheral pulses 2+ throughout RATE: regular rate RHYTHM: regular rhythm HEART SOUNDS: S1 normal heart sound present and S2 normal heart sound present PERIPHERAL PULSES: Peripheral pulses 2+ throughout GI: COMMON NORMALS: Normal to inspection, nondistended, normoactive bowel sounds present, Soft to palpation, non-tender, No hepatosplenomegaly present and no masses AUSCULTATION: Yes normoactive bowel sounds PALPATION: Yes Soft to palpation and Yes No hepatosplenomegaly present RECTAL EXAM: deferred Extremity: COMMON NORMALS: no clubbing, cyanosis or edema and no pedal edema Neuro: COMMON NORMALS: patient oriented x3 Discharge Data Data Completed and Pending: Completed Studies During Hospitalization Category Date Time Status CT angio chest PE protcl 25163 Urge nt Cat Scan 08/23/20 12:27 Completed XR chest 1V conor ble [id number] Stat Exams 08/23/20 10:08 Completed Pending at discharge Category Date Time Status BMP [Basic [employer] lic Panel] AM LABS Lab 08/28/20 04:00 Ordered Blood Culture Sta t Lab 08/23/20 16:35 Results CBC Auto Diff [Co mplete Blood Count w/Auto] AM LABS Lab 08/28/20 04:00 Ordered Labs from last 24 hours 08/27/20 08/27/20 08/26/20 04:35 04:35 17:54 WBC 5.8 RBC 4.81 Hgb 14.2 Hct 45.3 MCV 94.2 MCH 29.5 MCHC 31.3 RDW 13.2 Plt Count 295 MPV 10.8 H Neut % (Auto) 62.3 Lymph % (Auto) 29.6 [place] % (Auto) 5.8 Eos % (Auto) 0.2 Baso % (Auto) 0.2 Neut # (Auto) 3.64 Lymph # (Auto) 1.7 [place] # (Auto) 0.3 Eos # (Auto) 0.0 Baso # (Auto) 0.0 Nucleated RBC % (a uto) 0 Nucleated RBCs # 0.0 Sodium 139 138 Potassium 4.4 4.3 Chloride 102 105 Carbon Dioxide 29 25 Anion Gap 12.4 12.3 BUN 23 23 Creatinine 0.4 L 0.4 L GFR Calculation Not Reportable Not Reportable Glucose 96 187 H Calculated Osmolal ity 292 295 Calcium 10.6 H 10.0 Total Bilirubin 0.3 AST 31 ALT 43 H Alkaline Phosphata se 108 H Total Protein 6.2 L Albumin 3.1 L Globulin 3.1 08/26/20 17:54 WBC 5.3 RBC 4.35 Hgb 12.7 Hct 39.6 MCV 91.0 MCH 29.2 MCHC 32.1 RDW 13.2 Plt Count 273 MPV 10.4 Neut % (Auto) 81.6 Lymph % (Auto) 13.1 [place] % (Auto) 3.0 Eos % (Auto) 0.0 Baso % (Auto) 0.0 Neut # (Auto) 4.35 Lymph # (Auto) 0.7 L [place] # (Auto) 0.2 Eos # (Auto) 0.0 Baso # (Auto) 0.0 Nucleated RBC % (a uto) 0 Nucleated RBCs # 0.0 Sodium Potassium Chloride Carbon Dioxide Anion Gap BUN Creatinine GFR Calculation Glucose Calculated Osmolal ity Calcium Total Bilirubin AST ALT Alkaline Phosphata se Total Protein Albumin Globulin Vitals: Last Vital Signs Temp 98.1 F 08/27/20 08:00 Pulse 53 L 08/27/20 08:30 Resp 18 08/27/20 08:30 BP 171/82 08/27/20 08:00 Pulse Ox 93 08/27/20 08:30 Discharge Plan Discharge Patient Disposition: Home Condition: Stable Prescriptions: New budesonide 90 mcg/actuation aerosol powdr breath activated 2 inh INHALATION Q12H Qty: 1 RF: 0 dexamethasone 4 mg tablet 4 mg PO DAILY Qty: 7 RF: 0 Tessalon Perles 100 mg capsule 100 mg PO BID PRN (Reason: cough) Qty: 20 RF: 0 Robitussin Cough-Chest Srinivasan DM 10-200 mg capsule 1 tab-cap PO Q4H Qty: 30 RF: 0 Continued Tylenol Extra Strength 500 mg Tablet 500 mg PO PRN RF: 0 omeprazole 20 mg capsule,delayed release(DR/EC) 20 mg PO DAILY RF: 0 Vitamin D3 See Rx Instructions .ROUTE .COMPLEX RF: 0 hydrochlorothiazide 25 mg tablet 25 mg PO DAILY RF: 0 Discontinued prednisone 20 mg tablet 20 mg PO DAILY RF: 0 potassium chloride 20 mEq tablet,ER particles/crystals 20 meq PO DAILY RF: 0 Discharge Orders: Discharge Order (Routine); Ordered 08/27/20 Ordered By: Cullen Katz Other Ambulatory Orders: DME: Oxygen (Order) Location: None Selected Ordered By: Cullen Katz DME: Oxygen (Order) Location: None Selected Ordered By: Cullen Katz Referrals: Grey Baltazar [Primary Care Provider] - 09/01/20 9:00 am (CALL OFFICE WILL BRING THROUGH DIFFERENT DOOR) Patient Instructions: Budesonide (By breathing), Dexamethasone (By mouth), Viral Pneumonia (DC) Discharge Attestations Time Spent in Discharge Care*: greater than 30 min Specific Discharge Activities: Specific discharge activities: educating patient, educating and/or supporting family/caregiver, discussing with pcp/other providers, discussing with disability case manager/social workers/dc planners, documenting/other paperwork and evaluating patient/reviewing data Status at Discharge: Cognitive status at discharge: cognitively intact, Behavioral status at discharge: cooperative, Functional status at discharge: independent ambulation Overall status at discharge: patient is back to baseline Quality Metrics Clinical Quality Measures During this hospital stay, did patient experience: None Coding Level of Care Code Acute Journalists And Other Writers for [facility] Fwd Diagnoses Pneumonia due to COVID-19 virus U07.1; J12.89 Pleuritic pain R07.81 Acute respiratory failure J96.00
[2020-08-27] MEDS: dexamethasone 4 mg/mL INJ 6 MG IVP (11:10)
[2020-08-27] MEDS: pantoprazole DR 40 mg Tablet PO (11:10)
[2020-08-27] MEDS: doxycycline 100 mg Tablet PO (11:10)
[2020-08-27] MEDS: dexamethasone 4 mg Tablet 6 MG PO (13:08)
--- NOTE | 2020-08-28 12:54 | PC.SOCIAL ---
Spoke with the patient on the phone about the discharge information she received. She stated that she understood everything on the paperwork and stated that she would take the paperwork into her dr appointment on the . She stated that she had her oxygen at home and only uses it when she needs it. We spoke about signs and symptoms to watch for such as; blue lips or face, fever of 104 or higher, trouble breathing or catching breath, chest pain lasting longer than 5 minute, confusion or trouble waking up. We also spoke about ways to improve the immune system, these included; eating and drinking well, eating fruits and vegetables, lean meat, low fat dairy products, keeping up with immunizations such as flu/pneumonia/shingles shots, going to all appointments and follow ups, lessening and stress. We also spoke about ways to stop or prevent the spread of the COVID 19. These included; social distancing at all times, washing hands longer than 20 seconds with a good lather, sanitizing surfaces in home and in vehicle, masking up when possible and washing any cloth masks after use and allow them to dry completely before next use, sneezing or coughing into arm, restricting company or going out in public. We spoke about the benefits of plasma donation. She would like information on it. This will be mailed.
== END 2020-08-27 14:40 | disposition home or self-care (01) | DRG 177 ==
LOC: ER 16:10 → MEDSURG 16:39
PROVIDERS: Admitting Provider Internal Medicine; Emergency Provider Emergency Medicine; PCP Physician Assistant Medical; Visit Provider Internal Medicine
DX: U07.1 COVID-19 (principal); J12.89 Other viral pneumonia; J96.00 Acute respiratory failure, unspecified whether with hypoxia or hypercapnia; K21.9 Gastro-esophageal reflux disease without esophagitis; I10 Essential (primary) hypertension; R07.81 Pleurodynia; E83.42 Hypomagnesemia
CPT/HCPCS: 12345; 36415; 36600; 71045; 71275; 80048; 80053; 82728; 82803; 83605; 83615; 83735; 83880; 84145; 84484; 85025; 85378; 85384; 85610; 86140; 87040; 87426; 87635; 87804; 93005; 96372; 96375; 99283; J0456; J0696; J1100; J1650; J3475; J3490; J7050; J8540; Q9967

== ENCOUNTER → 2022-07-02 08:11 | Outpatient (BNVA) | payer MEDICARE, MEDICAID, SELFPAY | PROVIDERS: PCP Physician Assistant Medical; Referring Provider Dermatology; Visit Provider Podiatrist Foot & Ankle Surgery | DX: M19.072 Primary osteoarthritis, left ankle and foot (principal); M19.071 Primary osteoarthritis, right ankle and foot | CPT/HCPCS: 73610; 99203 ==

== ENCOUNTER → 2023-12-21 07:54 | Outpatient (BNVA) | payer MEDICARE, MEDICAID, SELFPAY | PROVIDERS: PCP Registered Nurse; Visit Provider Nurse Practitioner Family | DX: L57.0 Actinic keratosis (principal); L82.1 Other seborrheic keratosis; L91.8 Other hypertrophic disorders of the skin; L57.8 Other skin changes due to chronic exposure to nonionizing radiation; L81.4 Other melanin hyperpigmentation; D48.5 Neoplasm of uncertain behavior of skin | CPT/HCPCS: 11102; 17000; 99203 ==

== ENCOUNTER → 2024-01-09 07:54 | Outpatient (BNVA) | payer MEDICARE, MEDICAID, SELFPAY | PROVIDERS: PCP Registered Nurse; Visit Provider Dermatology | DX: C44.311 Basal cell carcinoma of skin of nose (principal) | CPT/HCPCS: 17311 ==

== ENCOUNTER → 2024-02-01 13:26 | Outpatient (BNVA) | payer MEDICARE, MEDICAID, SELFPAY | PROVIDERS: PCP Registered Nurse; Visit Provider Dermatology | DX: L82.1 Other seborrheic keratosis (principal); L72.0 Epidermal cyst; Z48.817 Encounter for surgical aftercare following surgery on the skin and subcutaneous tissue; Z85.828 Personal history of other malignant neoplasm of skin | CPT/HCPCS: 99213 ==

== ENCOUNTER 2024-06-20 22:20 | Emergency (ER) | payer MEDICARE, MEDICAID, SELFPAY ==
[2024-06-20 22:24] VITALS: BP 193/95; PULSE 96; RESP 18; TEMP 36.6; O2SAT 95
--- NOTE | 2024-06-20 22:30 | ECG_ITS ---
[facility] Test Date: 2024-06-20 Pat Name: Belia Patterson Department: Room: Gender: Female Customer Support Analyst: : 1940 Requested By: Ignacia Vanegas Order Number: [id number] Kyra MD: Flo Dave M.D. Measurements Intervals [place] Rate: 59 P: 47 WV: 170 QRS: 3 QRSD: 101 T: 19 QT: 369 QTc: 366 Interpretive Statements SINUS BRADYCARDIA Compared to ECG 08/23/2020 16:05:08 Sinus rhythm no longer present Electronically Signed On 06-22-2024 18:20:10 CDT by Flo Dave M.D. [email or web address] Managementwiser [facility] for women and [email or web address] va medical centerTransilio, [email or web address]. dba [id number]
--- NOTE | 2024-06-20 22:30 | W.ED.GENADLT ---
HPI - General Adult General: Chief complaint: Arrhythmia/Palpitations Stated complaint: high bp Time Seen by Provider: 06/20/24 22:26 Source: patient Mode of arrival: ambulatory Limitations: no limitations History of Present Illness: Patient is an 83-year-old female presents to ED today with a complaint of elevated blood pressure. Patient states her blood pressure has been running high over the past several weeks with no known history of hypertension. She states she has been put on 50mg of Losartan 25mg of HCTZ by her primary care provider. She states she is still having systolics anywhere from 140-200. Patient accompanied by a friend/family member who is concerned stating she has no history of hypertension and her blood pressure keeps going up . Was reportedly seen at [facility] recently and given prn Clonidine-she is out of this medication now. She states this does temporarily lower her blood pressure. She was asymptomatic when she went to [facility]. She is asymptomatic upon arrival here. She has never complained of headache, visual changes, or chest pain. Looking at previous blood pressure logs that we have in our system, patient has had elevated blood pressures going all the way back to 2019. She states prior to being diagnosed with hypertension she never routinely checked her blood pressure. Onset (ago): week(s) Relieving factors: none Exacerbating factors: none Associated symptoms: Deny chest pain, confusion, dyspnea, headache(s), malaise, nausea, palpitations, syncope or vomiting Related Data Home Medications Medication Instructions Recorded Confirmed Vitamin D3 See Rx Instructions .Route .COMPLEX 08/23/20 07/02/22 acetaminophen 500 mg tablet 500 mg PO PRN 08/23/20 07/02/22 (Tylenol Extra Strength) hydrochlorothiazide 25 mg tablet 25 mg PO DAILY 08/23/20 07/02/22 omeprazole 20 mg capsule,delayed 20 mg PO DAILY 08/23/20 07/02/22 release Previous Rx's Medication Instructions Recorded benzonatate 100 mg capsule 100 mg PO BID PRN cough #20 caps 08/27/20 (Teszaira Joe) budesonide 90 mcg/actuation breath 2 inh inhalation Q12H #1 ea 08/27/20 activated powder inhaler dexamethasone 4 mg tablet 4 mg PO DAILY #7 tabs 08/27/20 dextromethorphan-guaifenesin 10 1 tab-cap PO Q4H #30 caps 08/27/20 mg-200 mg capsule (Robitussin Cough-Chest Congestion DM) Allergies Allergy/AdvReac Type Severity Reaction Status Date / Time azithromycin [From Zithromax] Allergy Unknown Verified 06/20/24 22:23 diclofenac [From Voltaren] Allergy Unknown Verified 06/20/24 22:23 Review of Systems Const: Denies: fever(s), chills, body aches, fatigue or malaise Eyes: Denies: change in vision, blurry vision, photophobia, floaters or seeing flashes Card: Denies: chest pain, palpitations, irregular heart rhythm, edema, swelling of feet/ankles, lightheadedness, syncope, pre-syncope, dyspnea on exertion or orthopnea Resp: Denies: dyspnea GI: Denies: abdominal pain, nausea or vomiting Neuro: Denies: headache(s), dizziness, confusion or Slurred speech present PFSH ED PFSH: Medical History Transaminitis Hypertension GERD (gastroesophageal reflux disease) Hypoxia Pneumonia COVID-19 Surgical History History of carpal tunnel surgery History of hysterectomy History of bladder surgery History of cholecystectomy Family History Other CAD (coronary artery disease) Social History Smoking and tobacco/nicotine status: never used tobacco/nicotine Alcohol intake: never Physical Exam Const: COMMON NORMALS: no acute distress, average body habitus, patient oriented x3, no limitations, healthy appearing, alert and well nourished GENERAL APPEARANCE: cooperative ORIENTATION/CONSCIOUSNESS: Yes awake, Yes oriented to person, Yes oriented to place and Yes oriented to time HENMT: COMMON NORMALS: normocephalic and atraumatic HEAD & SCALP: normal to inspection, normocephalic and atraumatic FACE & SINUS: face symmetric Resp: COMMON NORMALS: normal respiratory effort and clear to auscultation bilaterally AUSCULTATION: clear to auscultation bilaterally Cardio: COMMON NORMALS: regular rate and regular rhythm RATE: regular rate RHYTHM: regular rhythm GI: COMMON NORMALS: Normal to inspection, nondistended, normoactive bowel sounds present, Soft to palpation, non-tender and no masses PALPATION: Yes Soft to palpation Extremity: GENERAL: Yes normal exam except as noted Neuro: VIRAL COMA SCALE: document GCS findings [place] coma scale eye opening: Spontaneous [place] coma scale verbal response: Orientated [place] coma scale motor response: Obey commands [place] coma scale total score: 15 COMMON NORMALS: patient oriented x3, CN's II-XII intact bilaterally, moves all extremities, no focal motor deficits, no sensory deficits noted and gait normal SENSORIUM/ORIENTATION: Yes alert, Yes oriented to person, Yes oriented to place and Yes oriented to time Course Vital Signs: Vital signs: Vital Signs Temperature 97.9 F 06/20/24 22:24 Pulse Rate 96 06/20/24 23:30 Respiratory Rate 20 H 06/20/24 23:30 Blood Pressure 172/77 06/20/24 23:30 Pulse Oximetry 95 06/20/24 23:30 Oxygen Delivery Me thod Room Air 06/20/24 23:12 MDM - General Adult Medical Decision Making I suspect patient has had chronic hypertension that was undiagnosed as she never checked her blood pressures at home. Looking at previous documentation in our system she has had systolics up into the 180s previously as far back as 2019. At this point she has room to increase her Losartan so I will have her start doing this twice daily. Continue blood pressure log. She has follow-up with primary care on Tuesday. Again she has been asymptomatic during her stay. We discussed there is no indication for emergent lowering for asymptomatic hypertension. Blood work unremarkable. UA suspicious for UTI however patient has no complaints of dysuria, urgency/hesitancy, cloudy or odorous urine. There was 6-10 squamous. Will culture and primary care can follow up on this on Tuesday. Return to ED precautions given. Medical Records I reviewed the patient's medical records. Lab Data I reviewed the patient's lab results. 06/20/24 22:55 06/20/24 22:55 Laboratory Results WBC 5.74 10^3/uL (3.29-11.43) 06/20/24 22:55 RBC 4.47 10^6/uL (3.85-5.65) 06/20/24 22:55 Hgb 13.50 g/dL (11.27-16.99) 06/20/24 22:55 Hct 41.0 % (36-47) 06/20/24 22:55 MCV 91.7 fl (85-98) 06/20/24 22: MCH 30.2 pg (27-33) 06/20/24 22: MCHC 32.9 g/dL (30-55) 06/20/24 22: RDW 13.2 % (12.1-15.1) 06/20/24 22: Plt Count 202 10^3/cmm (157-399) 06/20/24 22:55 MPV 11.2 fL (7.4-10.4) H 06/20/24 22:55 Neut % (Auto) 61.1 % 06/20/24 22: Lymph % (Auto) 28.0 % 06/20/24 22:55 Hinds % (Auto) 7.5 % 06/20/24 22: Eos % (Auto) 2.6 % 06/20/24 22: Baso % (Auto) 0.5 % 06/20/24 22: Neut # (Auto) 3.50 10^3/uL (1.8-7.7) 06/20/24 22: Lymph # (Auto) 1.6 10^3/uL (0.8-4.8) 06/20/24 22: Hinds # (Auto) 0.4 10^3/uL (0.2-0.9) 06/20/24 22: Eos # (Auto) 0.2 10^3/uL (0.0-0.8) 06/20/24 22: Baso # (Auto) 0.0 10^3/uL (0.0-0.1) 06/20/24 22: Nucleated RBC % (auto) 0 % 06/20/24: Nucleated RBCs # 0.0 /100WBC 06/20/24 22: Sodium 137 mmol/L (136-145) 06/20/24 22:55 Potassium 4.0 mmol/L (3.5-5.1) 06/20/24 22:55 Chloride 98 mmol/L (98-107) 06/20/24 22: Carbon Dioxide 26 mmol/L (22-29) 06/20/24 22:55 Anion Gap 17.0 (5-19) 06/20/24 22:55 BUN 21 mg/dL (8-23) 06/20/24 22:55 Creatinine 0.5 mg/dL (0.5-0.9) 06/20/24 22:55 GFR Calculation Not Reportable 06/20/24 22:55 Glucose 113 mg/dL (65-115) 06/20/24 22:55 Calculated Osmolality 288 mOsm/kg (285-295) 06/20/24 22:55 Calcium 10.8 mg/dL (8.5-10.5) H 06/20/24 22:55 Total Bilirubin 0.8 mg/dL (0.15-1.2) 06/20/24 22:55 AST 18 U/L (0-32) 06/20/24 22:55 ALT 10 U/L (0-33) 06/20/24 22:55 Alkaline Phosphatase 168 U/L (35-105) H 06/20/24 22:55 Total Protein 6.8 g/dL (6.6-8.7) 06/20/24 22:55 Albumin 4.4 g/dL (3.5-5.2) 06/20/24 22:55 Globulin 2.4 g/dL (1.3-4.6) 06/20/24 22:55 Urine Color Yellow (Yellow) 06/20/24 00:15 Urine Appearance Clear (CLEAR) 06/20/24 00:15 Urine pH 6.0 (5-7) 06/20/24 00:15 Ur Specific [place] 1.017 (1.005-1.030) 06/20/24 00:15 Urine Protein Negative (Negative) 06/20/24 00:15 Urine Glucose (UA) Negative (Normal) 06/20/24 00:15 Urine Ketones Negative (Negative) 06/20/24 00:15 Urine Blood Negative (Negative) 06/20/24 00:15 Urine Nitrate Negative (Negative) 06/20/24 00:15 Urine Bilirubin Negative (Negative) 06/20/24 00:15 Urine Urobilinogen 1.0 mg/dL (Negative) 06/20/24 00:15 Ur Leukocyte Esterase 2+ (Negative) A 06/20/24 00:15 Urine RBC 0-2 /hpf (0-2) 06/20/24 00:15 Urine WBC 21-50 /hpf (0-5) H 06/20/24 00:15 Ur Squamous Epith Cells 6-10 /hpf (0-5) 06/20/24 00:15 Amorphous Sediment Not Reportable 06/20/24 00:15 Urine Bacteria Trace /hpf (NONE) 06/20/24 00:15 Hyaline Casts 0-4 /lpf H 06/20/24 00:15 No radiology studies performed this visit Discharge Plan Discharge Patient Disposition: Home Clinical Impression: Asymptomatic hypertension Condition: Stable Prescriptions: No Action Tylenol Extra Strength 500 mg Tablet 500 mg PO PRN omeprazole 20 mg capsule,delayed release(DR/EC) 20 mg PO DAILY Vitamin D3 See Rx Instructions .ROUTE .COMPLEX Rx Instructions: PT STATES SHE BOUGHT THIS MEDICATION BUT HASNT STARTED USING IT YET hydrochlorothiazide 25 mg tablet 25 mg PO DAILY budesonide 90 mcg/actuation aerosol powdr breath activated 2 inh INHALATION Q12H Qty: 1 0RF dexamethasone 4 mg tablet 4 mg PO DAILY Qty: 7 0RF Tessalon Perles 100 mg capsule 100 mg PO BID PRN (Reason: cough) Qty: 20 0RF Robitussin Cough-Chest Srinivasan DM 10-200 mg capsule 1 tab-cap PO Q4H Qty: 30 0RF Discharge Orders: Discharge ED (Routine); Ordered 06/20/24 Ordered By: Ignacia Vanegas Referrals: Sohpy Taylor [Primary Care Provider] - Patient Instructions: Chronic Hypertension (DC), Hypertension (ED) Activity Restrictions/Additional Instructions: As we discussed I would like you to start doing your Losartan 50mg twice daily. Continue keeping a blood pressure log, taking twice daily, and follow up with primary care on Tuesday as scheduled. As we discussed your urine analysis was slightly suspicious for infection. You are not having any UTI-like symptoms at this time. We will culture and have primary care follow-up on this on Tuesday. You need to alert her if you begin having any painful urination, frequency/urgency, hesitancy, abdominal or flank pain, fevers. Coding Level of Care Code ED Seam Presser for Ladonna Abraham
[2024-06-20 23:03] LABS: Basophils % 0.5 %; Eosinophils # 0.2 10^3/uL (0.0-0.8); Eosinophils % 2.6 %; Lymphocytes # 1.6 10^3/uL (0.8-4.8); Mean Corpuscular HGB Conc 32.9 g/dL (30-55); Mean Corpuscular Hemoglobin 30.2 pg (27-33); Mean Corpuscular Volume 91.7 fl (85-98); Mean Platelet Volume 11.2 fL (7.4-10.4); Monocytes # 0.4 10^3/uL (0.2-0.9); Monocytes % 7.5 %; Neutrophils % 61.1 %; Nucleated Red Blood Cells % 0 %; Platelet Count 202 10^3/cmm (157-399); Red Blood Count 4.47 10^6/uL (3.85-5.65); Red Cell Distribution Width 13.2 % (12.1-15.1); White Blood Count 5.74 10^3/uL (3.29-11.43)
[2024-06-20 23:12] VITALS: BP 200/111; PULSE 91; RESP 18; O2SAT 92
[2024-06-20 23:14] LABS: Charge for UA Resulting for Rev
[2024-06-20] MEDS: hyDRALAzine 20 mg/mL INJ 1 mL 10 MG IVP (23:15)
[2024-06-20 23:17] LABS: Bilirubin Urine Negative (Negative); Blood Urine Negative (Negative); Glucose Urine UA Negative (Normal); Ketones Urine Negative (Negative); Leukocyte Esterase Urine 2+ (Negative); Nitrate Urine Negative (Negative); Protein Urine Negative (Negative); Specific Gravity, Urine 1.017 (1.005-1.030); Urine Appearance Clear (CLEAR); Urine Color Yellow (Yellow)
[2024-06-20 23:22] LABS: Bacteria Urine Trace /hpf; Hyaline Casts Urine 0-4 /lpf; RBC Urine 0-2 /hpf (0-2); WBC Urine 21-50 /hpf (0-5)
[2024-06-20 23:22] LABS: Alanine Aminotransferase 10 U/L (0-33); Albumin Level 4.4 g/dL (3.5-5.2); Alkaline Phosphatase 168 U/L (35-105); Blood Urea Nitrogen 21 mg/dL (8-23); Calcium 10.8 mg/dL (8.5-10.5); Carbon Dioxide 26 mmol/L (22-29); Chloride 98 mmol/L (98-107); Creatinine Clr Calc Pharmacy 57.2097; Globulin 2.4 g/dL (1.3-4.6); Glucose 113 mg/dL (65-115); Osmolality Calculated 288 mOsm/kg (285-295); Sodium 137 mmol/L (136-145); Total Bilirubin 0.8 mg/dL (0.15-1.2); Total Protein 6.8 g/dL (6.6-8.7)
[2024-06-20 23:23] LABS: Aspartate Amino Transferase 18 U/L (0-32)
[2024-06-20 23:26] LABS: Add Urine Culture? Yes
[2024-06-20 23:30] VITALS: BP 172/77; PULSE 96; RESP 20; O2SAT 95
[2024-06-21 00:01] VITALS: BP 190/98; PULSE 90; RESP 18
[2024-06-21 00:27] LABS: Glucose Point of Care 116 mg/dL (70-110)
== END 2024-06-21 00:08 | disposition home or self-care (01) ==
PROVIDERS: Emergency Provider Physician Assistant; PCP Registered Nurse
DX: I10 Essential (primary) hypertension (principal)
CPT/HCPCS: 36416; 80053; 81003; 81015; 82962; 85025; 87086; 93005; 96374; 99284; J0360

== ENCOUNTER 2024-06-21 00:23 | Emergency (ER) | payer MEDICARE, MEDICAID, SELFPAY ==
[2024-06-21 00:26] VITALS: BP 177/90; PULSE 62; RESP 18; O2SAT 94; BMI 34.1
--- NOTE | 2024-06-21 00:26 | W.ED.GENADLT ---
HPI - General Adult General: Stated complaint: SOB Time Seen by Provider: 06/21/24 00:25 Related Data Home Medications Medication Instructions Recorded Confirmed Vitamin D3 See Rx Instructions .Route .COMPLEX 08/23/20 07/02/22 acetaminophen 500 mg tablet 500 mg PO PRN 08/23/20 07/02/22 (Tylenol Extra Strength) hydrochlorothiazide 25 mg tablet 25 mg PO DAILY 08/23/20 07/02/22 omeprazole 20 mg capsule,delayed 20 mg PO DAILY 08/23/20 07/02/22 release Previous Rx's Medication Instructions Recorded benzonatate 100 mg capsule 100 mg PO BID PRN cough #20 caps 08/27/20 (Tessalon Perles) budesonide 90 mcg/actuation breath 2 inh inhalation Q12H #1 ea 08/27/20 activated powder inhaler dexamethasone 4 mg tablet 4 mg PO DAILY #7 tabs 08/27/20 dextromethorphan-guaifenesin 10 1 tab-cap PO Q4H #30 caps 08/27/20 mg-200 mg capsule (Robitussin Cough-Chest Congestion DM) Allergies Allergy/AdvReac Type Severity Reaction Status Date / Time azithromycin [From Zithromax] Allergy Unknown Verified 06/20/24 22:23 diclofenac [From Voltaren] Allergy Unknown Verified 06/20/24 22:23 PFSH ED PFSH: Medical History Transaminitis Hypertension GERD (gastroesophageal reflux disease) Hypoxia Pneumonia COVID-19 Surgical History History of carpal tunnel surgery History of hysterectomy History of bladder surgery History of cholecystectomy Family History Other CAD (coronary artery disease) Social History Smoking and tobacco/nicotine status: never used tobacco/nicotine Alcohol intake: never Discharge Plan Discharge Condition: Stable Prescriptions: No Action Tylenol Extra Strength 500 mg Tablet 500 mg PO PRN omeprazole 20 mg capsule,delayed release(DR/EC) 20 mg PO DAILY Vitamin D3 See Rx Instructions .ROUTE .COMPLEX Rx Instructions: PT STATES SHE BOUGHT THIS MEDICATION BUT HASNT STARTED USING IT YET hydrochlorothiazide 25 mg tablet 25 mg PO DAILY budesonide 90 mcg/actuation aerosol powdr breath activated 2 inh INHALATION Q12H Qty: 1 0RF dexamethasone 4 mg tablet 4 mg PO DAILY Qty: 7 0RF Tessalon Perles 100 mg capsule 100 mg PO BID PRN (Reason: cough) Qty: 20 0RF Robitussin Cough-Chest Srinivasan DM 10-200 mg capsule 1 tab-cap PO Q4H Qty: 30 0RF Referrals: Sophy Taylor [Primary Care Provider] - Coding Level of Care Code ED Surveyor Hydrographic for Chg Fwmaddy
--- NOTE | 2024-06-21 00:49 | W.ED.GENADLT ---
HPI - General Adult General: Chief complaint: Shortness of Breath/Dyspnea Stated complaint: SOB Time Seen by Provider: 06/21/24 00:25 Source: patient and family Mode of arrival: ambulatory Limitations: no limitations History of Present Illness: Patient is a nice 84-year-old female who presents to the emergency department again shortly after her discharge. I personally saw patient less than 30 minutes ago for asymptomatic hypertension. Workup at that time was benign and patient felt good at time of discharge. She states while in the waiting room she began feeling lightheaded and very shaky and a little bit nauseous . She states she believes she may have had a case of the nervous shakes . Once back to a room again she tells me she already feels better. No longer shaking. Blood pressure is around the same range in which I discharged her earlier. She has no complaints of chest pain, shortness of breath, or difficulty breathing. She has no abdominal pain. Reports nausea comes and goes . She states she has not been sick recently. No cough/congestion. No sick contacts. She does report history of anxiety and takes citalopram. No headache/visual changes. Onset (ago): minute(s) Severity: mild Relieving factors: none Exacerbating factors: none Associated symptoms: Reports nausea; Deny chest pain, confusion, dyspnea, headache(s), malaise, rash, palpitations or vomiting Treatments prior to arrival: none Related Data Home Medications Medication Instructions Recorded Confirmed Vitamin D3 See Rx Instructions .Route .COMPLEX 08/23/20 07/02/22 acetaminophen 500 mg tablet 500 mg PO PRN 08/23/20 07/02/22 (Tylenol Extra Strength) hydrochlorothiazide 25 mg tablet 25 mg PO DAILY 08/23/20 07/02/22 omeprazole 20 mg capsule,delayed 20 mg PO DAILY 08/23/20 07/02/22 release Previous Rx's Medication Instructions Recorded benzonatate 100 mg capsule 100 mg PO BID PRN cough #20 caps 08/27/20 (Michael Joe) budesonide 90 mcg/actuation breath 2 inh inhalation Q12H #1 ea 08/27/20 activated powder inhaler dexamethasone 4 mg tablet 4 mg PO DAILY #7 tabs 08/27/20 dextromethorphan-guaifenesin 10 1 tab-cap PO Q4H #30 caps 11/04/20 mg-200 mg capsule (Robitussin Cough-Chest Congestion DM) Allergies Allergy/AdvReac Type Severity Reaction Status Date / Time azithromycin [From Zithromax] Allergy Unknown Verified 06/21/24 00:36 diclofenac [From Voltaren] Allergy Unknown Verified 06/21/24 00:36 Review of Systems Const: Reports: other ( feeling shaky ; improved at time of my examination); Denies: fever(s), chills, body aches, fatigue or malaise Eyes: Denies: change in vision or blurry vision Card: Denies: chest pain, palpitations, irregular heart rhythm or dyspnea on exertion Resp: Denies: dyspnea, productive cough, non-productive cough, pain on inspiration or chest congestion GI: Reports: nausea; Denies: abdominal pain, vomiting, diarrhea or change in bowel habits : Denies: flank pain, difficulty voiding, dysuria, urinary frequency, urinary urgency or urinary hesitancy Musc: Denies: neck pain, back pain, extremity pain or joint pain Skin/Breast: Denies: rash Neuro: Denies: headache(s), numbness in extremities, weakness in extremities, sensory changes or confusion PFSH ED PFSH: Medical History Transaminitis Hypertension GERD (gastroesophageal reflux disease) Hypoxia Pneumonia COVID-19 Surgical History History of carpal tunnel surgery History of hysterectomy History of bladder surgery History of cholecystectomy Family History Other CAD (coronary artery disease) Social History Smoking and tobacco/nicotine status: never used tobacco/nicotine Alcohol intake: never Physical Exam Const: COMMON NORMALS: no acute distress, average body habitus, patient oriented x3, no limitations, healthy appearing, alert and well nourished GENERAL APPEARANCE: cooperative ORIENTATION/CONSCIOUSNESS: Yes awake, Yes oriented to person, Yes oriented to place and Yes oriented to time HENMT: FACE & SINUS: face symmetric Neck/C-Spine: GENERAL: Yes normal visual inspection Chest: COMMONS NORMALS: normal inspection of the chest and normal palpation of entire chest wall Resp: COMMON NORMALS: normal respiratory effort and clear to auscultation bilaterally AUSCULTATION: clear to auscultation bilaterally Cardio: COMMON NORMALS: regular rate and regular rhythm RATE: regular rate RHYTHM: regular rhythm GI: COMMON NORMALS: Normal to inspection, nondistended, normoactive bowel sounds present, Soft to palpation and non-tender PALPATION: Yes Soft to palpation Extremity: GENERAL: Yes normal exam except as noted Neuro: [place] COMA SCALE: document GCS findings [place] coma scale eye opening: Spontaneous [place] coma scale verbal response: Orientated [place] coma scale motor response: Obey commands [place] coma scale total score: 15 COMMON NORMALS: patient oriented x3, CN's II-XII intact bilaterally, moves all extremities, no focal motor deficits, no sensory deficits noted and gait normal SENSORIUM/ORIENTATION: Yes alert, Yes oriented to person, Yes oriented to place and Yes oriented to time GAIT: Yes Normal gait present OTHER: patient was able to ambulate here in the emergency department without difficulty or assistance; states she got slightly nauseous when she stood up Skin: COMMON NORMALS: no rashes or lesions noted GENERAL SKIN EXAM: no rashes or lesions noted Course Vital Signs: Vital signs: Vital Signs Pulse Rate 64 06/21/24 01:43 Respiratory Rate 21 H 06/21/24 01:43 Blood Pressure 161/83 06/21/24 01:43 Pulse Oximetry 93 06/21/24 01:43 Oxygen Delivery Me thod Room Air 06/21/24 00:26 MDM - General Adult Medical Decision Making Patient is an 84-year-old male here after checking in again probably after her discharge for an episode of shakiness and lightheadedness and nausea while in the waiting room. Once back to her room she tells me her symptoms have already improved. No abnormalities noted on her blood work on previous visit. Please see previous MDM regarding her chronic hypertension and plan for this. EKG on this visit showing no changes from EKG performed earlier. CXR unremarkable. She has no chest pain. No complaints of dyspnea. Patient was ambulatory here in the emergency department without difficulty. She feels comfortable going home at this time as does family. Recommend she continue plan to follow-up with primary care on Tuesday. Return to ED precautions given. Medical Records I reviewed the patient's medical records. Lab Data I reviewed the patient's lab results. XR interpretation done by ED provider, pending radiology final review Discharge Plan Discharge Patient Disposition: Home Clinical Impression: Chronic hypertension Condition: Stable Prescriptions: No Action Tylenol Extra Strength 500 mg Tablet 500 mg PO PRN omeprazole 20 mg capsule,delayed release(DR/EC) 20 mg PO DAILY Vitamin D3 See Rx Instructions .ROUTE .COMPLEX Rx Instructions: PT STATES SHE BOUGHT THIS MEDICATION BUT HASNT STARTED USING IT YET hydrochlorothiazide 25 mg tablet 25 mg PO DAILY budesonide 90 mcg/actuation aerosol powdr breath activated 2 inh INHALATION Q12H Qty: 1 0RF dexamethasone 4 mg tablet 4 mg PO DAILY Qty: 7 0RF Tessalon Perles 100 mg capsule 100 mg PO BID PRN (Reason: cough) Qty: 20 0RF Robitussin Cough-Chest Srinivasan DM 10-200 mg capsule 1 tab-cap PO Q4H Qty: 30 0RF Discharge Orders: Discharge ED (Routine); Ordered 06/21/24 Ordered By: Ignacia Vanegas Referrals: Sophy Taylor [Primary Care Provider] - Coding Level of Care Code ED Training Assistant for Ladonna Abraham
--- NOTE | 2024-06-21 00:57 | XRR_ITS ---
PROCEDURE INFORMATION: Exam: XR Chest Exam date and time: 06/21/2024 1:32 AM Age: 84 years old Clinical indication: Other: Shaky and nausea; Additional info: Shaky/nausea? TECHNIQUE: Imaging protocol: Radiologic exam of the chest. Views: 1 view. COMPARISON: CT angio chest PE protcl [id number] 08/23/2020 1:00 PM FINDINGS: Lungs: Unremarkable. No consolidation. Pleural spaces: Unremarkable. No pleural effusion. No pneumothorax. Heart/Mediastinum: Cardiomegaly. Vasculature: Unfolding of the thoracic aorta. Bones/joints: Moderate degenerative of bilateral acromioclavicular and bilateral glenohumeral joints. Chronic fracture deformity of the left humeral head. XR/XR chest 1V portable [id number] IMPRESSION: No acute cardiopulmonary process.
--- NOTE | 2024-06-21 00:59 | ECG_ITS ---
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 Measurements Intervals [place] Rate: 82 P: 47 OK: 168 QRS: 32 QRSD: 89 T: 23 QT: 362 QTc: 424 Interpretive Statements SINUS RHYTHM LOW QRS VOLTAGE IN PRECORDIAL LEADS [QRS DEFLECTION < 1.0 mV IN CHEST LEADS] Compared to ECG 06/20/2024 22:43:14 Low QRS voltage now present Sinus bradycardia no longer present Electronically Signed On 06-22-2024 18:20:27 CDT by Flo Dave M.D. [email or web address]
[2024-06-21 01:10] VITALS: BP 173/81; PULSE 61; RESP 18; O2SAT 95
[2024-06-21 01:43] VITALS: BP 161/83; PULSE 64; RESP 21; O2SAT 93
--- NOTE | 2024-06-21 01:56 | PC.NURSE ---
KANDIS Vanegas approved BP of 162/84 at discharge. Pt had no further concerns.
[2024-06-21 01:57] VITALS: BP 162/84; PULSE 64; RESP 21; O2SAT 93
[2024-06-21 02:55] LABS: Adenovirus Not Detected (NOT DETECT); Chlamydia Pneumoniae Not Detected (NOT DETECT); Coronavirus 229E,HKU1,NL63,OC4 Not Detected (NOT DETECT); Human Metapneumovirus Not Detected (NOT DETECT); Human Rhinovirus/Enterovirus Not Detected (NOT DETECT); Influenza A Not Detected (NOT DETECT); Influenza A H1 Not Detected (NOT DETECT); Influenza A H1-2009 Not Detected (NOT DETECT); Influenza A H3 Not Detected (NOT DETECT); Influenza B Not Detected (NOT DETECT); Mycoplasma Pneumoniae Not Detected (NOT DETECT); Parainfluenza Virus Type 1 Not Detected (NOT DETECT); Parainfluenza Virus Type 2 Not Detected (NOT DETECT); Parainfluenza Virus Type 3 Not Detected (NOT DETECT); Parainfluenza Virus Type 4 Not Detected (NOT DETECT); Respiratory Syncytial Virus A Not Detected (NOT DETECT); Respiratory Syncytial Virus B Not Detected (NOT DETECT); SARS-COV-2 Not Detected (NOT DETECT)
== END 2024-06-21 01:59 | disposition home or self-care (01) ==
PROVIDERS: Emergency Provider Physician Assistant; PCP Registered Nurse
DX: I10 Essential (primary) hypertension (principal); Z11.52 Encounter for screening for COVID-19
CPT/HCPCS: 71045; 87635; 93005; 99285

== ENCOUNTER → 2024-08-02 10:18 | Outpatient (BNVA) | payer MEDICARE, MEDICAID, SELFPAY | PROVIDERS: PCP Registered Nurse; Visit Provider Nurse Practitioner Family | DX: L57.0 Actinic keratosis (principal); L82.0 Inflamed seborrheic keratosis; L91.8 Other hypertrophic disorders of the skin; L57.8 Other skin changes due to chronic exposure to nonionizing radiation; Z85.828 Personal history of other malignant neoplasm of skin | CPT/HCPCS: 11200; 17000; 17110; 99213 ==

== ENCOUNTER → 2025-01-31 09:02 | Outpatient (BNVA) | payer MEDICARE, MEDICAID, SELFPAY | PROVIDERS: PCP Registered Nurse; Visit Provider Nurse Practitioner Family | DX: L72.0 Epidermal cyst (principal); L57.8 Other skin changes due to chronic exposure to nonionizing radiation; L81.4 Other melanin hyperpigmentation; Z08 Encounter for follow-up examination after completed treatment for malignant neoplasm; Z85.828 Personal history of other malignant neoplasm of skin; L57.0 Actinic keratosis | CPT/HCPCS: 17000; 99213 ==

== ENCOUNTER → 2025-04-09 10:14 | Outpatient (BNVA) | payer MEDICARE, MEDICAID, SELFPAY | PROVIDERS: PCP Registered Nurse; Visit Provider Nurse Practitioner Family | DX: L57.8 Other skin changes due to chronic exposure to nonionizing radiation (principal); L81.4 Other melanin hyperpigmentation; Z08 Encounter for follow-up examination after completed treatment for malignant neoplasm; Z85.828 Personal history of other malignant neoplasm of skin; L57.0 Actinic keratosis | CPT/HCPCS: 17000; 99213 ==

== ENCOUNTER → 2025-08-05 09:09 | Outpatient (BNVA) | payer MEDICARE, MEDICAID, SELFPAY | PROVIDERS: PCP Registered Nurse; Visit Provider Nurse Practitioner Family | DX: L57.8 Other skin changes due to chronic exposure to nonionizing radiation (principal); L81.4 Other melanin hyperpigmentation; Z08 Encounter for follow-up examination after completed treatment for malignant neoplasm; Z85.828 Personal history of other malignant neoplasm of skin; L57.0 Actinic keratosis | CPT/HCPCS: 17000; 99213 ==